=== PATIENT | male | born 2000 | race Hispanic/Latino ===

== ENCOUNTER 2020-05-18 12:02 | Emergency (ER) | payer MEDICAID, OTHER ==
[2020-05-18 13:23] LABS: BASOPHILS % (AUTO) 0.2 % (0.0-5.0); EOSINOPHILS % (AUTO) 1.1 % (0.0-8.0); HEMATOCRIT 43.8 % (42-54); LYMPHOCYTES % (AUTO) 21.2 % (21.0-51.0); MEAN CORPUSCULAR HEMOGLOBIN 29.4 pg (27.0-33.0); MEAN CORPUSCULAR HGB CONC 34.7 g/dL (32.0-36.0); MEAN CORPUSCULAR VOLUME 84.7 fL (79-99); MONOCYTES % (AUTO) 7.9 % (3.0-13.0); NEUTROPHILS % (AUTO) 69.3 % (40.0-77.0); PLATELET COUNT (AUTO) 296 K/uL (130-400); RED BLOOD CELL COUNT(AUTO) 5.17 MIL/uL (4.50-6.20); RED CELL DISTRIBUTION WIDTH 12.5 % (11.0-15.5); WHITE BLOOD COUNT (AUTO) 12.9 K/uL (4.8-10.8)
[2020-05-18 13:27] LABS: POTASSIUM 3.8 mmol/L (3.5-5.1)
[2020-05-18 13:32] LABS: ALBUMIN 4.7 g/dL (3.5-5.0); BILIRUBIN,TOTAL 1.3 mg/dL (0.2-1.0); TOTAL PROTEIN, SERUM 8.4 g/dL (6.0-8.3)
[2020-05-18] MEDS ORDERED: KETOROLAC TROMETHAMINE 30MG/ML ONE (13:36)
== END 2020-05-18 14:39 | disposition home or self-care (01) ==
LOC: EEVIPCON 12:02 → EDH 12:02
DX: S02.2XXA Fracture of nasal bones, initial encounter for closed fracture (principal); S00.12XA Contusion of left eyelid and periocular area, initial encounter; S00.11XA Contusion of right eyelid and periocular area, initial encounter; M79.641 Pain in right hand; Y04.0XXA Assault by unarmed brawl or fight, initial encounter; Y93.89 Activity, other specified; Y92.89 Other specified places as the place of occurrence of the external cause; Y99.8 Other external cause status
CPT/HCPCS: 36415; 70450; 70486; 72125; 73130; 80053; 85025; 93005; 96374; 99285; J1885

== ENCOUNTER 2025-01-04 17:28 | Emergency (ER) | payer OTHER ==
[~2025-01-04] VITALS: Ht 172.7 cm; Wt 99.3 kg
[2025-01-04 17:31] VITALS: TEMP 97.3
--- NOTE | 2025-01-04 18:38 | ERN ---
General Chief Complaint: Earache Stated Complaint: EAR PROBLEM Time Seen by MD: 17:31 Time Seen by Midlevel: 17:31 Source: patient History of Present Illness Initial Comments 24-year-old male who presents to the emergency department coming from [facility] due to right ear pain and swelling. Patient states it occurred approximately half a week ago but pain worsened 2 hours ago. Denies any direct trauma, head injuries or further associated symptoms. Denies any significant past medical history. Patient is currently taking antibiotics. Allergies: Coded Allergies: No Known Drug Allergies (Unverified Allergy, Unknown, 01/04/25) Past Medical History Past Medical History: No Pertinent History Past Surgical History: None ROS Dictation Constitutional: Negative for fever,chills, and weight loss Eyes: Negative for injury, pain,redness, and discharge ENT: Positive for right ear swelling, pain Negative for injury Cardiovascular: Negative for chest pain, palpitations, and edema Respiratory: Negative for shortness of breath, cough, and wheezing, Abdomen/GI: Negative for abdominal pain, nausea, vomiting, diarrhea, and constipation Back: Negative for injury and pain : Negative for painful urination, bleeding or discharge MS/Extremity: Negative for injury and deformity Skin: Negative for rash, and discoloration Neuro: Negative for headache, weakness, numbness, tingling, and seizure Psych: Negative for suicide ideation, homicidal ideation, and hallucinations Physical Exam Physical Exam Dictation General: awake, alert, no acute distress Head/Face: Normocephalic, atraumatic Eyes: PERRL, EOMI, normal conjunctiva ENT: oral cavity clear, oral mucosa moist, hematoma noted to the right ear (fossa/helix) with mild tenderness to palpation Neck: Supple, normal range of motion Cardiovascular: RRR, normal S1/S2 Respiratory: CTAB, no respiratory distress Skin: Warm, dry, normal turgor, no rash MS/Extremity: Pulses equal, no cyanosis, neurovascular intact, FROM Neuro: COAx4, GCS 15, strength 5/5, CN 2-12 intact, normal cerebellar exam, normal gait Psych: Normal behavior, mood, and affect normal MDM MDM: Differential diagnosis: Hematoma, infection, perichondritis Rationale: 24-year-old male who presents to the emergency department coming from [facility] due to right ear pain and swelling. Patient states it occurred approximately half a week ago but pain worsened 2 hours ago. Denies any direct trauma, head injuries or further associated symptoms. Denies any significant past medical history. Patient is currently taking antibiotics. Hematoma was drained from the right ear without any complications. Culture on drainage was ordered, pending. Patient was educated on findings, diagnosis, and treatment. Advised to continue taking the previously prescribed antibiotics. Advised to follow up with PCP. Return to the emergency department if any worsening symptoms. Patient verbalized understanding. Patient stable for discharge. There are no social concerns with this patient. I independently interpreted the test that were performed, results were reviewed by me and considered findings on radiology if ordered. Medical management and examination interpretation discussions were had by me with other qualified healthcare professionals as indicated for the patient's care. ED Course Orders Procedure Category Date Status Time Aerobic Culture CHELLE 01/04/25 In Process 17:37 Lidocaine Hcl 1% 20ml PHA 01/04/25 Complete Vial (Lidocaine Hc 17:37 Tetanus,Diphtheria PHA 01/04/25 Complete Tox [Adult] (Diphther 19:00 Current Medications Medications (Trade) Dose Ordered Sig/Maida Route PRN Reason Start Time Stop Time Status Last Admin Dose Admin Lidocaine HCl (Lidocaine HCl 1% 20ml Vial) 10 ml ONCE STAT INJ 01/04/25 17:37 01/04/25 17:57 DC 01/04/25 18:40 Tetanus/ Diphtheria Toxoids Adsorbed (DiphthERIA-teTANUS TOXOID [ADULT]/ DECAVAC) 0.5 ml ONCE ONCE IM 01/04/25 19:00 01/04/25 19:01 DC 01/04/25 18:57 Vital Signs Date Time Temp Pulse Resp B/P (MAP) Pulse Ox O2 Delivery O2 Flow Rate FiO2 01/04/25 19:24 81 17 150/70 96 Room Air* 0 21 01/04/25 17:31 97.3 80 16 206/124 98 DX & DISP Disposition: Discharge Departure Impression: Primary Impression: Hematoma of right ear Additional Impression: Perichondritis of external ear Condition: Stable Additional Instructions: Discharge home. Rest. Follow up with primary care in 24 hours. Return to the ER for any acute changes or worsening symptoms. Continue previously prescribed antibiotics. If any medications were prescribed take as directed. Okay to continue home medications unless otherwise discussed during your visit in the emergency room today. Patient was also advised to follow-up with primary care physician in 1 to 2 days for continued monitoring. Referrals: SELF,REFERRAL (PCP) I performed the substantive portion of the visit. I have reviewed and personally made and approve the management plan that is documented in the notes by myself or the KATHIE. I acknowledge full responsibility for the patient's management plan. SEDA LUNA January 04, 2025 18:38
[2025-01-04] MEDS: LIDOCAINE HCL 1% 20 ML VIAL INJ STA (18:40)
[2025-01-04] MEDS: teTANUS/diphthERIA TOXOID [ADULT] 0.5 ML VIAL IM ONE (18:57)
[2025-01-04 19:24] VITALS: BP 150/70; PULSE 81; RESP 17; O2SAT 96
== END 2025-01-04 19:43 | disposition home or self-care (01) ==
LOC: EEVIPCON 17:28 → EDH 17:28
DX: S00.431A Contusion of right ear, initial encounter (principal); H61.001 Unspecified perichondritis of right external ear; X58.XXXA Exposure to other specified factors, initial encounter; Y93.89 Activity, other specified; Y92.89 Other specified places as the place of occurrence of the external cause; Y99.8 Other external cause status
CPT/HCPCS: 69000; 87070; 87086; 87186; 90471; 90714; 99284

== ENCOUNTER 2025-01-04 22:16 | Emergency (ER) | payer OTHER ==
[~2025-01-04] VITALS: Ht 172.7 cm; Wt 99.3 kg
[2025-01-04] MEDS: ketOROlac 15MG/ML VIAL (15MG/ML) IM ONE (22:50)
[2025-01-04] MEDS: LIDOCAINE HCL 1% 20 ML VIAL INJ ONE (23:35)
--- NOTE | 2025-01-04 23:48 | ERN ---
General Chief Complaint: Earache Stated Complaint: C/O SWELLING TO RIGHT EAR Time Seen by MD: 22:23 Time Seen by Midlevel: 22:23 Source: patient History of Present Illness Initial Comments 24-year-old male who presents to the emergency department coming from [facility] due to right ear pain and swelling. Patient was seen earlier today and hematoma was drained from the right ear however patient is still complaining of and swelling reoccurred. Patient states it initiated approximally half a week ago but pain worsened today. Denies any direct trauma, head injuries or further associated symptoms. Denies any significant past medical history. Patient is currently taking antibiotics. Allergies: Coded Allergies: No Known Drug Allergies (Unverified Allergy, Unknown, 01/04/25) Past Medical History Past Medical History: No Pertinent History Past Surgical History: None ROS Dictation Constitutional: Negative for fever,chills, and weight loss Eyes: Negative for injury, pain,redness, and discharge ENT: Positive for right ear swelling, pain Negative for injury Cardiovascular: Negative for chest pain, palpitations, and edema Respiratory: Negative for shortness of breath, cough, and wheezing, Abdomen/GI: Negative for abdominal pain, nausea, vomiting, diarrhea, and constipation Back: Negative for injury and pain : Negative for painful urination, bleeding or discharge MS/Extremity: Negative for injury and deformity Skin: Negative for rash, and discoloration Neuro: Negative for headache, weakness, numbness, tingling, and seizure Psych: Negative for suicide ideation, homicidal ideation, and hallucinations Physical Exam Physical Exam Dictation General: awake, alert, no acute distress Head/Face: Normocephalic, atraumatic Eyes: PERRL, EOMI, normal conjunctiva ENT: oral cavity clear, oral mucosa moist, hematoma noted to the right ear (fossa/helix) with mild tenderness to palpation Neck: Supple, normal range of motion Cardiovascular: RRR, normal S1/S2 Respiratory: CTAB, no respiratory distress Skin: Warm, dry, normal turgor, no rash MS/Extremity: Pulses equal, no cyanosis, neurovascular intact, FROM Neuro: COAx4, GCS 15, strength 5/5, CN 2-12 intact, normal cerebellar exam, normal gait Psych: Normal behavior, mood, and affect normal MDM MDM: Differential diagnosis: Hematoma, infection, perichondritis Rationale: 24-year-old male who presents to the emergency department coming from [facility] due to right ear pain and swelling. Patient was seen earlier today and hematoma was drained from the right ear however patient is still complaining of and swelling reoccurred. Patient states it initiated approximally half a week ago but pain worsened today. Denies any direct trauma, head injuries or further associated symptoms. Denies any significant past medical history. Patient is currently taking antibiotics. Hematoma was drained once again from the right ear without any complications. Quick clot and coban placed. Culture on drainage that was previously ordered still pending. Patient was educated on findings, diagnosis, and treatment. Advised to continue taking the previously prescribed antibiotics. Advised to follow up with PCP. Return to the emergency department if any worsening symptoms. Patient verbalized understanding. Patient stable for discharge. There are no social concerns with this patient. I independently interpreted the test that were performed, results were reviewed by me and considered findings on radiology if ordered. Medical management and examination interpretation discussions were had by me with other qualified healthcare professionals as indicated for the patient's care. ED Course Orders Procedure Category Date Status Time Lidocaine Hcl 1% 20ml PHA 01/04/25 Complete Vial (Lidocaine Hc 23:00 Ketorolac PHA 01/04/25 Complete Tromethamine 15mg/Ml 23:00 Current Medications Medications (Trade) Dose Ordered Sig/Maida Route PRN Reason Start Time Stop Time Status Last Admin Dose Admin Ketorolac Tromethamine (toRADol) 15 mg ONCE ONCE IM 01/04/25 23:00 01/04/25 23:01 DC 01/04/25 22:50 Lidocaine HCl (Lidocaine HCl 1% 20ml Vial) 10 ml ONCE ONCE INJ 01/04/25 23:00 01/04/25 23:01 DC Vital Signs Date Time Temp Pulse Resp B/P (MAP) Pulse Ox O2 Delivery O2 Flow Rate FiO2 01/04/25 23:49 98.6 85 18 158/88 100 Room Air* 0 21 01/04/25 22:17 98.4 82 20 187/111 97 Room Air DX & DISP Disposition: Discharge Departure Impression: Primary Impression: Hematoma of right ear Condition: Stable Additional Instructions: Discharge home. Rest. Follow up with primary care in 24 hours. Return to the ER for any acute changes or worsening symptoms. Continue taking previously prescribed antibiotic. If any medications were prescribed take as directed. Okay to continue home medications unless otherwise discussed during your visit in the emergency room today. Patient was also advised to follow-up with primary care physician in 1 to 2 days for continued monitoring. Referrals: SELF,REFERRAL (PCP) I performed the substantive portion of the visit. I have reviewed and personally made and approve the management plan that is documented in the notes by myself or the KATHIE. I acknowledge full responsibility for the patient's management plan. SEDA LUNA January 04, 2025 23:48
[2025-01-04 23:49] VITALS: BP 158/88; PULSE 85; RESP 18; TEMP 98.6; O2SAT 100
== END 2025-01-04 23:51 | disposition home or self-care (01) ==
LOC: EDH 22:16 → EEVIPCON 22:16 → EDH 23:51
DX: S00.431A Contusion of right ear, initial encounter (principal); X58.XXXA Exposure to other specified factors, initial encounter; Y93.89 Activity, other specified; Y92.89 Other specified places as the place of occurrence of the external cause; Y99.8 Other external cause status
CPT/HCPCS: 69000; 99283; 96372; J1885